=== PATIENT | female | born 1950 | race Caucasian/White ===

== ENCOUNTER → 2018-04-16 | Emergency (ER) | payer MEDICARE, BC ==
[~2018-04-16] VITALS: Ht 157.5 cm; Wt 63.5 kg
[~2018-04-16] MED LIST: ASPI-612 PO; ATOR10TA PO; CLONIDINE HCL 0.2 MG TABLET ONE; CLONIDINE HCL 0.2 MG TABLET PO ONE; LISI10TA5 PO; LORAZEPAM 1 MG TABLET ONE
--- NOTE | 2018-04-16 08:59 | NUR ---
Dr. Stark at the bedside for MSE.
[2018-04-16 09:07] VITALS: BP 157/103
--- NOTE | 2018-04-16 09:15 | NUR ---
Pt left for CT scan head with radiologist.
--- NOTE | 2018-04-16 09:30 | NUR ---
Pt returned from CT head. Pt stable and nad noted upon returning.
--- NOTE | 2018-04-16 10:41 | NUR ---
Patient discharged to home in stable conditon. Written and verbal after care instructions given. Patient verbalizes understanding of instructions.
== END | disposition home or self-care (01) ==
LOC: ER 08:45
DX: R51 Headache (principal); I10 Essential (primary) hypertension; E78.00 Pure hypercholesterolemia, unspecified; Z79.82 Long term (current) use of aspirin; Z79.899 Other long term (current) drug therapy; Z86.73 Personal history of transient ischemic attack (TIA), and cerebral infarction without residual deficits
CPT/HCPCS: 36415; 70030-TC; 70450; 93005; A4663

== ENCOUNTER 2018-04-19 00:40 | Emergency (ER) | payer MEDICARE, BC ==
[~2018-04-19] VITALS: Ht 167.6 cm; Wt 63.5 kg
[~2018-04-19 00:40] MED LIST changes: -CLONIDINE HCL 0.2 MG TABLET ONE; -CLONIDINE HCL 0.2 MG TABLET PO ONE; -LORAZEPAM 1 MG TABLET ONE
[2018-04-19] MEDS ORDERED: LORAZEPAM 0.5 MG TABLET PO ONE (01:00)
--- NOTE | 2018-04-19 01:44 | NUR ---
Patient discharged to home in stable conditon. Written and verbal after care instructions given. Patient verbalizes understanding of instructions.
== END 2018-04-19 01:48 | disposition home or self-care (01) ==
LOC: ER 00:42
DX: I10 Essential (primary) hypertension (principal); E78.00 Pure hypercholesterolemia, unspecified; Z79.82 Long term (current) use of aspirin; Z79.899 Other long term (current) drug therapy; Z86.73 Personal history of transient ischemic attack (TIA), and cerebral infarction without residual deficits
CPT/HCPCS: A4663

== ENCOUNTER 2019-01-28 00:31 | Emergency (ER) | payer MEDICARE, BC ==
[~2019-01-28] VITALS: Ht 157.5 cm; Wt 63.5 kg
[2019-01-28] MEDS ORDERED: CLONIDINE HCL 0.1 MG TABLET PO ONE (01:30)
[2019-01-28] MEDS ORDERED: LORAZEPAM 0.5 MG TABLET PO ONE (01:30)
[2019-01-28] MEDS ORDERED: LORAZEPAM 0.5 MG TABLET ONE (01:45)
--- NOTE | 2019-01-28 01:45 | NUR ---
Dr Garcia into re eval patient.
--- NOTE | 2019-01-28 01:50 | NUR ---
DR MARTINI DISCONTINUE CLONIDINE 0.1MG DUE TO BP AT 142/87
--- NOTE | 2019-01-28 02:00 | NUR ---
Patient discharged to home in stable conditon. Written and verbal after care instructions given. Patient verbalizes understanding of instructions. AMBULATORY W/ STABLE GAIT ALL BELONGINGS W/ PT
[2019-01-28 02:24] VITALS: BP 142/87
== END 2019-01-28 02:24 | disposition home or self-care (01) ==
LOC: ER 00:35
DX: I10 Essential (primary) hypertension (principal); R20.2 Paresthesia of skin; E78.00 Pure hypercholesterolemia, unspecified; Z79.82 Long term (current) use of aspirin
CPT/HCPCS: 93005; A4663

== ENCOUNTER 2021-08-27 23:45 | Emergency (ER) | payer MEDICARE, OTHER ==
[~2021-08-27] VITALS: Ht 152.4 cm; Wt 69.5 kg
[~2021-08-27 23:45] MED LIST changes: +LISI10TA29 PO; -LISI10TA5 PO
--- NOTE | 2021-08-28 00:15 | NUR ---
pt in room c/o chest pain, states mid chest.
--- NOTE | 2021-08-28 00:16 | NUR ---
Dr. Hallman in room for SONG.
[2021-08-28 00:24] LABS: MEAN CORPUSCULAR HEMOGLOBIN 30.3 uug (24.7-32.8); MEAN CORPUSCULAR VOLUME 86.6 fL (75.5-95.3); PLATELET COUNT (AUTO) 205 K/uL (179-408)
[2021-08-28 00:36] LABS: CARBON DIOXIDE 28 mmol/L (21-32); CHLORIDE 103 mmol/L (98-107); CREATININE 0.8 mg/dL (0.6-1.3); GLUCOSE 138 mg/dL (74-106); POTASSIUM 3.7 mmol/L (3.5-5.1); UREA NITROGEN, BLOOD 16 mg/dL (7-18)
--- NOTE | 2021-08-28 00:39 | NUR ---
pt taken for cat scan of the head.
[2021-08-28 00:48] LABS: ALANINE AMINOTRANSFERASE 27 U/L (14-59); ALKALINE PHOSPHATASE 98 U/L (50-136); ASPARTATE AMINOTRANSFERASE 16 U/L (15-37); BILIRUBIN,DIRECT 0.1 mg/dL (0.0-0.2); BILIRUBIN,TOTAL 0.3 mg/dL (0.2-1.0); TOTAL PROTEIN, SERUM 7.1 g/dL (6.4-8.2)
[2021-08-28] MEDS ORDERED: ROSU10TA2 PO (01:55)
[2021-08-28] MEDS ORDERED: AMLO5TAB4 PO (01:55)
[2021-08-28] MEDS ORDERED: vascepa PO (01:55)
--- NOTE | 2021-08-28 01:58 | NUR ---
Call to [facility] panel for admission.
--- NOTE | 2021-08-28 02:00 | NUR ---
[facility] Vergara called for Dr. Hallman.
--- NOTE | 2021-08-28 03:07 | NUR ---
pt signed ama paper, pt demanded I remove her iv and removed her surveillance system monitor. Dr. Hallman was made aware.
[2021-08-28 03:14] VITALS: BP 148/81
== END 2021-08-28 03:16 | disposition left against medical advice (07) ==
LOC: ER 23:50
DX: R07.9 Chest pain, unspecified (principal); R10.9 Unspecified abdominal pain; F17.210 Nicotine dependence, cigarettes, uncomplicated; Z85.048 Personal history of other malignant neoplasm of rectum, rectosigmoid junction, and anus; E78.00 Pure hypercholesterolemia, unspecified; Z79.899 Other long term (current) drug therapy; G89.29 Other chronic pain; M54.9 Dorsalgia, unspecified; I10 Essential (primary) hypertension; R53.1 Weakness
CPT/HCPCS: 36415; 70450; 71045; 84484; 85025; 93005; A4663

== ENCOUNTER 2022-01-17 10:17 | Inpatient (IN) | payer MEDICARE, BC ==
[~2022-01-17] VITALS: Ht 152.4 cm; Wt 86.2 kg
[~2022-01-17 10:17] MED LIST changes: +AMLO5TAB4 PO; -ASPI-612 PO; -ATOR10TA PO; -LISI10TA29 PO; +ROSU10TA2 PO; +vascepa PO
[2022-01-17 10:49] LABS: HEMATOCRIT 39.5 % (31.2-41.9); MEAN CORPUSCULAR HEMOGLOBIN 30.5 uug (24.7-32.8); MEAN CORPUSCULAR VOLUME 89.5 fL (75.5-95.3); PLATELET COUNT (AUTO) 268 K/uL (179-408)
[2022-01-17] MEDS ORDERED: AMLO2.5T4 PO (10:50)
[2022-01-17 11:16] LABS: CARBON DIOXIDE 29 mmol/L (21-32); CHLORIDE 105 mmol/L (98-107); CREATININE 0.7 mg/dL (0.6-1.3); GLUCOSE 113 mg/dL (74-106); POTASSIUM 3.7 mmol/L (3.5-5.1); UREA NITROGEN, BLOOD 14 mg/dL (7-18)
--- NOTE | 2022-01-17 13:00 | NUR ---
DR Macdonald into eval patient.
[2022-01-17] MEDS ORDERED: ONDANSETRON 4 MG/2 ML VIAL IV PRN (15:00)
[2022-01-17] MEDS ORDERED: ACETAMINOPHEN 325 MG TABLET PO PRN (15:00)
[2022-01-17] MEDS ORDERED: MAGNESIUM HYDROXIDE 30 ML LIQUID UDC PO PRN (15:00)
--- NOTE | 2022-01-17 17:00 | NUR ---
Patient in room interacting with family eaqtting with no distress noted.
--- NOTE | 2022-01-17 17:42 | NUR ---
Patient back from ct scan with no distress noted.
--- NOTE | 2022-01-17 18:49 | NUR ---
Patient was endorsed from ER, with following diagnosis: Chest pain, Syncope episode. Hx: Rectal CA, hyperlipidemia, HTN. Patient is alert and oriented X4, pleasant to converse with, patient is very familiar with her condition, upon assessment patient stated to have been sitting down on a chair when the syncope episode occurred, denies having hurt herself. Patient is able to see and hear adequately, wears reading glasses and present upon admission. Patient is ambulatory, continent of both & with BRP, skin is intact. Placed on monitor and currently A-Fib with HR 88, denies any chest pain, dizzines, lightheadedness, N/V. Patient has a cell phone and speak, a "daughter, is a nurse" as she claims. Oriented patient to facility and surroundings. Safety precaution instructions provided. Encouraged to use the call light every time help is needed with good verbal demonstration. Dr. Burr assigned physician aware, orders in the system.
[2022-01-17 20:11] VITALS: BP 145/72
[2022-01-17] MEDS: METOPROLOL TARTRATE 25 MG TABLET PO SCH (20:47)
[2022-01-17] MEDS ORDERED: TEMAZEPAM 7.5 MG CAPSULE PO PRN (21:00)
[2022-01-18 00:12] VITALS: BP 103/60
[2022-01-18 04:15] VITALS: BP 111/63
--- NOTE | 2022-01-18 06:02 | NUR ---
Slept intermittently, in no acute distress. A. fib on tele w/ HR 57bpm. Denies chest pain. Needs assessed and attended to. Call light within easy reach.
[2022-01-18 06:57] LABS: HEMATOCRIT 39.3 % (31.2-41.9); MEAN CORPUSCULAR HEMOGLOBIN 30.8 uug (24.7-32.8); MEAN CORPUSCULAR VOLUME 89.7 fL (75.5-95.3); PLATELET COUNT (AUTO) 283 K/uL (179-408)
[2022-01-18 07:17] LABS: THYROID STIMULATING HORMONE 2.051 mIU/mL (0.358-3.740)
[2022-01-18 07:40] LABS: BILIRUBIN,TOTAL 0.3 mg/dL (0.2-1.0); CREATININE 0.7 mg/dL (0.6-1.3); MAGNESIUM 2.1 mg/dL (1.8-2.4); PHOSPHOROUS 3.5 mg/dL (2.5-4.9); TOTAL PROTEIN, SERUM 7.9 g/dL (6.4-8.2); URIC ACID 4.3 mg/dL (2.6-6.0)
[2022-01-18] MEDS: AMLODIPINE 2.5 MG TABLET PO SCH (09:50)
[2022-01-18] MEDS: METOPROLOL TARTRATE 25 MG TABLET PO SCH (09:51)
[2022-01-18 11:10] VITALS: BP 106/60
[2022-01-18 15:34] VITALS: BP 109/53
[2022-01-18 20:46] VITALS: BP 126/69
[2022-01-19 00:17] VITALS: BP 114/52
[2022-01-19 04:50] VITALS: BP 110/61
[2022-01-19] MEDS: AMLODIPINE 2.5 MG TABLET PO SCH (09:00)
--- NOTE | 2022-01-19 09:00 | NUR ---
awake alert and oriented, sitting in bedside chair, denies of any pain/discomfort, had episode of heart rate in the 40's, afib, denies of any shortness of breath, safety measures maintained, call light within reach
[2022-01-19 11:03] VITALS: BP 143/70
--- NOTE | 2022-01-19 11:30 | NUR ---
Dr Julian here, to keep pt NPO for pacemaker insertion by Dr Pfeiffer this afternoon
--- NOTE | 2022-01-19 12:00 | NUR ---
surgery in am instead of today- pt informed, Dr Julian aware, tele afib 80's
[2022-01-19 15:09] VITALS: BP 124/68
--- NOTE | 2022-01-19 16:00 | NUR ---
seen by Dr Roque, consent signed for OR in am for permanent pacemaker placement
--- NOTE | 2022-01-19 18:18 | NUR ---
no distress noted, afib in the 70's, all needs attended and met, call light within reach, daughter here visiting
[2022-01-19 20:24] VITALS: BP 125/79
[2022-01-19 20:29] LABS: *BILIRUBIN,URIN NEGATIVE (NEGATIVE); *BLOOD, URINE NEGATIVE (NEGATIVE); *CLARITY,URINE CLEAR (CLEAR); *COLOR,URINE YELLOW (YELLOW); *KETONES,URINE NEGATIVE (NEGATIVE); *UROBILINOGEN,URINE 0.2 E.U./dl (NORMAL); LEUKOCYTE ESTERASE ,URINE NEGATIVE (NEGATIVE); NITRITE, URINE NEGATIVE (NEGATIVE); PH,URINE 5.5 (5.0-8.0); UGLUCOSE NEGATIVE (NEGATIVE)
[2022-01-20] VITALS (7 sets, daily range): BP systolic 111–147; BP diastolic 55–76
--- NOTE | 2022-01-20 08:00 | NUR ---
awake alert and oriented, up and about in the room, denies of pain, no dyspnea, tele afib 70's, for permanent pacemaker placement today, npo since midnight, needs attended, call light within reach
[2022-01-20] MEDS: AMLODIPINE 2.5 MG TABLET PO SCH (08:54)
--- NOTE | 2022-01-20 13:00 | NUR ---
family at bedside, kept NPO
--- NOTE | 2022-01-20 13:40 | NUR ---
OR crew here, taken pt instable condition per bed
[2022-01-20] MEDS ORDERED: HEPARIN SODIUM,PORCINE 1,000 UNITS/ML VIAL ONE (14:00)
[2022-01-20] MEDS ORDERED: LIDOCAINE HCL 1% 20 ML VIAL ONE (14:00)
[2022-01-20] MEDS ORDERED: BUPIVACAINE PF 0.5% 30 ML VIAL ONE (14:00)
[2022-01-20] MEDS ORDERED: IOPAMIDOL 15 ML VIAL IT ONE (14:00)
[2022-01-20] MEDS ORDERED: FENTANYL CITRATE 100 MCG/2 ML AMPUL ONE (14:36)
--- NOTE | 2022-01-20 16:25 | NUR ---
back from recovery room, pt awake, alert and oriented, dsg on the left upper chest area-clean and dry, tele applied, afib with some V paced beats, vs monitored, dvt pumps on IS given and taught how to use it, call light within reach, family at bedside
[2022-01-20] MEDS ORDERED: LIDOCAINE-MPF 2% 5 ML VIAL IJ ONE (17:58)
[2022-01-20] MEDS ORDERED: PROPOFOL 200 MG/20 ML BOTTLE IV ONE (17:58)
--- NOTE | 2022-01-20 19:18 | NUR ---
resting in bed, tele a fib with v paced beats 70's , voided to [place] with help and ate dinner fairly, no n/v noted, states just feels tired, family at bedside, no distress noted, left upper chest incision with dsg-dry and intact
--- NOTE | 2022-01-20 21:52 | NUR ---
Pt returned from Radiology via W/C. CT chest without contrast done.
--- NOTE | 2022-01-20 23:20 | NUR ---
DR. ABREU SPOKE TO PT REGARDING THE SURGERY. PT SIGNED THE CONSENT FOR REVISION OF PACEMAKER.
[2022-01-21 00:02] VITALS: BP 123/53
[2022-01-21 04:47] VITALS: BP 110/59
[2022-01-21] MEDS ORDERED: LIDOCAINE HCL 1% 20 ML VIAL ONE (06:20)
[2022-01-21] MEDS ORDERED: MIDAZOLAM HCL 2 MG/2 ML VIAL ONE (07:08)
[2022-01-21] MEDS ORDERED: FENTANYL CITRATE 100 MCG/2 ML AMPUL ONE (07:08)
[2022-01-21] MEDS ORDERED: KETAMINE HCL 500 MG/10 ML INJ ONE (07:08)
[2022-01-21] MEDS ORDERED: CEFAZOLIN 1 G VIAL IM ONE (07:46)
[2022-01-21] MEDS ORDERED: PROPOFOL 200 MG/20 ML BOTTLE IV ONE (07:46)
[2022-01-21] MEDS ORDERED: BUPIVACAINE PF 0.5% 30 ML VIAL ONE (07:52)
--- NOTE | 2022-01-21 11:07 | NUR ---
Pt received from recovery team. Pt awake alert x4. Dressing 4x4 covered with tegaderm on left chest wall pacemaker no bleeding noted. Tele shows v pacing with underlying rhythm of a fib @ 70's. Pt able to wiggle toes and feel sensation. Pt's UE's strength are WNL. Encourage pt to use IS x 10 WA. PT able to return demonstrate proper technique with IS. PT's VSS b/p 130/72 - HR 70- resp 18- o2 sat 100% @ 4 liters. PT denies any c/o pain. Call light is within reach.
[2022-01-21 11:35] VITALS: BP 133/71
--- NOTE | 2022-01-21 16:00 | NUR ---
Dr damian saw pt. PT requesting to have IV fluid taken off and non functional IV on right AC off as well. Pt refused to have her VS taken at 4pm. Explained to patient importance of having a VS taken but pt continues to refuse VS. Pt also refused to have her scd on. explained purpose of scd but pt continues to refuse. Taper o2 to 3 lit via n/c.
--- NOTE | 2022-01-21 18:26 | NUR ---
Pt on R/A with saturation of 96% o2 sat and denies any c/o SOB. Pt out and about walking in the room to the bathroom with family assistance. PT has good balance while ambulating. Pt is in no acute distress. Continue to encourage use of IS x 10 WA. pt agreeable with plan. Call light is within reach.
[2022-01-21 20:19] VITALS: BP 138/62
[2022-01-22 00:11] VITALS: BP 107/45
--- NOTE | 2022-01-22 01:30 | NUR ---
Pt complained of pain and discomfort on surgical site. Tylenol given as ordered.
[2022-01-22 04:00] VITALS: BP 160/82
[2022-01-22 07:15] LABS: HEMATOCRIT 39.4 % (31.2-41.9); MEAN CORPUSCULAR HEMOGLOBIN 29.5 uug (24.7-32.8); MEAN CORPUSCULAR VOLUME 90.8 fL (75.5-95.3); PLATELET COUNT (AUTO) 253 K/uL (179-408)
[2022-01-22 07:26] LABS: CREATININE 0.7 mg/dL (0.6-1.3); MAGNESIUM 1.9 mg/dL (1.8-2.4); PHOSPHOROUS 3.1 mg/dL (2.5-4.9); POTASSIUM 4.3 mmol/L (3.5-5.1)
[2022-01-22] MEDS ORDERED: METOPROLOL TARTRATE 25 MG TABLET PO SCH (09:00)
[2022-01-22] MEDS ORDERED: ATOR20TA PO (11:07)
[2022-01-22] MEDS ORDERED: METO25TA6 PO (11:07)
[2022-01-22] MEDS ORDERED: APIX5TAB PO (11:07)
[2022-01-22 12:00] VITALS: BP 114/54
--- NOTE | 2022-01-22 13:40 | NUR ---
Discharge instructions given to patient. Pt verbalized understanding. IV taken out. Instructed pt to fu with primary doctor and car pick up driver niya. Pharmacy verified DRUGS R US in [place]. Pt is in no acute distress.
[2022-01-22] MEDS ORDERED: GLUCERNA SHAKE 237 ML CAN PO SCH (14:15)
[2022-01-22] MEDS ORDERED: ATORVASTATIN 20 MG TABLET PO SCH (21:00)
== END 2022-01-22 13:40 | disposition home or self-care (01) | DRG 243 ==
LOC: EDBD 10:18 → ER 10:18 → TRANSITION 17:40 → TELE3 17:56
PROVIDERS: ADMIT Internal Medicine; ATTEND Nurse Practitioner Family
PROC: 0JH604Z Insertion of Pacemaker, Single Chamber into Chest Subcutaneous Tissue and Fascia, Open Approach (ICD-10-PCS; principal; 2022-01-20)
PROC: 02HK3JZ Insertion of Pacemaker Lead into Right Ventricle, Percutaneous Approach (ICD-10-PCS; 2022-01-20)
PROC: 02WA3MZ Revision of Cardiac Lead in Heart, Percutaneous Approach (ICD-10-PCS; 2022-01-21)
DX: I48.20 Chronic atrial fibrillation, unspecified (principal); T82.120A Displacement of cardiac electrode, initial encounter; R55 Syncope and collapse; G47.33 Obstructive sleep apnea (adult) (pediatric); E78.5 Hyperlipidemia, unspecified; Z20.822 Contact with and (suspected) exposure to COVID-19; I11.9 Hypertensive heart disease without heart failure; E66.9 Obesity, unspecified; Z79.01 Long term (current) use of anticoagulants; Z87.442 Personal history of urinary calculi; Z68.37 Body mass index [BMI] 37.0-37.9, adult; I49.5 Sick sinus syndrome; R07.9 Chest pain, unspecified; Y84.8 Other medical procedures as the cause of abnormal reaction of the patient, or of later complication, without mention of misadventure at the time of the procedure; Y92.230 Patient room in hospital as the place of occurrence of the external cause
CPT/HCPCS: 36415; 70030-TC; 70450; 71045; 71250; 82652; 83735; 84100; 84443; 84484; 84550; 85025; 85730; 93005; 93307; 93880; A4649; A4663; G0378; J0690; J1644; J2250; J3010; J3490; Q9967